=== PATIENT | male | born 1985 | race American Indian/Alaskan Native ===

== ENCOUNTER 2017-07-05 23:10 | Emergency (ER) | payer OTHER ==
[2017-07-05] MEDS ORDERED: ZOFRAN ONE (23:24)
[2017-07-05] MEDS ORDERED: MORPHINE ONE (23:24)
[2017-07-05] MEDS ORDERED: MORPHINE IV ONE (23:28)
[2017-07-05] MEDS ORDERED: BOOSTRIX IM ONE (23:28)
[2017-07-05] MEDS ORDERED: ZOFRAN IV ONE (23:28)
[2017-07-05] MEDS ORDERED: DILAUDID IV ONE (23:47)
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
[2017-07-06] MEDS ORDERED: NACL 0.9% IR ONE
--- NOTE | 2017-07-06 00:01 | XRay Report ---
FINAL REPORT PROCEDURE: Left middle finger. TECHNIQUE: Three views. HISTORY: Finger amputation. COMPARISON: No prior studies are available for comparison. FINDINGS: There is an oblique amputation through the distal end of the distal phalanx of the middle finger. There are no radiopaque foreign bodies. There is soft tissue material missing. IMPRESSION: Amputation of the distal end of the middle finger.
[2017-07-06] MEDS ORDERED: XYLOCAINE 2% INFILTRATI ONE (00:05)
[2017-07-06] MEDS ORDERED: NACL 0.9% 500 ML IR ONE (00:05)
[2017-07-06] MEDS ORDERED: MARCAINE 0.5% INFILTRATI ONE (00:15)
[2017-07-06 00:54] VITALS: BP 117/76
== END 2017-07-06 01:06 | disposition other institution (70) ==
LOC: ED 23:10
DX: S68.123A Partial traumatic metacarpophalangeal amputation of left middle finger, initial encounter (principal); W20.8XXA Other cause of strike by thrown, projected or falling object, initial encounter; Y93.89 Activity, other specified; Y92.89 Other specified places as the place of occurrence of the external cause; Y99.8 Other external cause status
CPT/HCPCS: 64450; 73140; 90471; 90715; 96374; 96375; 99284; J1170; J2270; J2405